=== PATIENT | male | born 1935 | race African-American/Black ===

== ENCOUNTER 2024-10-06 12:27 | Inpatient (IN) | payer MEDICARE, MEDICAID ==
[~2024-10-06] VITALS: Ht 167.6 cm; Wt 98.0 kg
[2024-10-06 12:35] VITALS: O2SAT 97
[2024-10-06 14:08] LABS: CLARITY URINE CLEAR (CLEAR); COLOR URINE YELLOW (YELLOW); GLUCOSE URINE 1+ (NEGATIVE); KETONES URINE NEGATIVE (NEGATIVE); LEUKOCYTE ESTERASE URINE NEGATIVE (NEGATIVE); NITRITE URINE NEGATIVE (NEGATIVE); OCCULT BLOOD URINE NEGATIVE (NEGATIVE); PH URINE 6.0 (4.5-8.0); PROTEIN URINE NEGATIVE (NEGATIVE); SPECIFIC GRAVITY URINE 1.007 (1.005-1.030); UROBILINOGEN URINE 0.2 E.U./dL (0.2-1.0)
[2024-10-06 14:28] LABS: BACTERIA URINE NONE SEEN; SQUAMOUS EPITHELIAL CELL URINE RARE /lpf (RARE/1+)
[2024-10-06 14:29] LABS: RBC URINE NONE SEEN /hpf (0-2); WBC URINE NONE SEEN /hpf (0-2)
[2024-10-06 15:41] LABS: BASOPHILS % 0.4 % (0.0-2.0); EOSINOPHILS % 1.0 % (0.0-5.0); HEMATOCRIT. 40.0 % (42.0-52.0); HEMOGLOBIN. 12.1 g/dL (14.0-18.0); LYMPHOCYTES % 11.8 % (20.0-50.0); MEAN PLATELET VOLUME 9.9 fl (7.4-10.4); MONOCYTES % 9.5 % (2.0-8.0); NEUTROPHILS % 77.3 % (40.0-76.0); PLATELET 198 x1000/uL (130-400); RED BLOOD CELL COUNT 4.52 mill/uL (4.7-6.1); RED CELL DISTRIBUTION WIDTH 18.8 % (11.6-14.6)
[2024-10-06 15:51] LABS: INR 1.0
[2024-10-06 15:55] LABS: CREATININE 1.1 mg/dL (0.6-1.3)
[2024-10-06 15:56] LABS: UREA NITROGEN BLOOD 11 mg/dL (9-23)
[2024-10-06 15:57] LABS: ASPARTATE AMINOTRANSFERASE 13 IU/L (<34)
[2024-10-06 15:58] LABS: BILIRUBIN DIRECT 0.3 mg/dL (<=3.0); BILIRUBIN TOTAL 0.9 mg/dL (0.1-1.0); PROTEIN TOTAL 6.7 g/dL (6.0-8.3)
[2024-10-06 16:08] LABS: TROPONIN I HIGH SENSITIVITY 57 ng/L (3.0-53)
[2024-10-06] MEDS: ASPIRIN 325MG TABLET PO ONE (16:33)
[2024-10-06] MEDS ORDERED: DIPHENHYDRAMINE 50MG/ML VIAL IV PRN (18:45)
[2024-10-06] MEDS ORDERED: CARVEDILOL 6.25 MG TABLET PO NR (18:45)
[2024-10-06] MEDS ORDERED: DOCUSATE SODIUM 100MG CAPSULE PO PRN (18:45)
[2024-10-06] MEDS ORDERED: ONDANSETRON HCL 4MG/2ML INJ IV PRN (18:45)
[2024-10-06] MEDS ORDERED: MAGNESIUM/ALUMINUM HYDROXIDE/SIMETHICONE 30ML UDC PO PRN (18:45)
[2024-10-06] MEDS ORDERED: GUAIFENESIN 200MG/10ML SUGAR FREE UDC PO PRN (18:45)
[2024-10-06] MEDS ORDERED: ACETAMINOPHEN 325MG TABLET PO PRN ×2 (18:45)
[2024-10-06 20:35] LABS: TROPONIN I HIGH SENSITIVITY 55 ng/L (3.0-53)
[2024-10-06 21:00] VITALS: BP 139/102; PULSE 111; RESP 18; TEMP 36.1; O2SAT 100
[2024-10-06] MEDS: FUROSEMIDE 40MG/4ML VIAL IV SCH (22:04)
[2024-10-06] MEDS: ATORVASTATIN CALCIUM 40MG TABLET PO SCH (22:04)
[2024-10-06] MEDS: ENOXAPARIN 30MG/0.3ML SYR SUBCUT SCH (22:05)
[2024-10-06] MEDS ORDERED: IBUP-2030 PO (23:02)
[2024-10-06] MEDS ORDERED: LATA2.5D14 EACHEYE (23:02)
[2024-10-06] MEDS ORDERED: BRIM.2 EACHEYE (23:02)
[2024-10-06] MEDS ORDERED: FINA5TAB11 PO (23:02)
[2024-10-06] MEDS ORDERED: EMPA25TA PO (23:02)
[2024-10-06] MEDS ORDERED: FOLI-43 PO (23:02)
[2024-10-06] MEDS ORDERED: RIVA20TA PO (23:02)
[2024-10-06] MEDS ORDERED: ERGO1250 PO (23:02)
[2024-10-06] MEDS ORDERED: DORZ10DR9 EACHEYE (23:02)
[2024-10-06] MEDS ORDERED: DILT300C52 PO (23:02)
[2024-10-06] MEDS ORDERED: CYAN-35 PO (23:02)
[2024-10-06] MEDS ORDERED: OXYC30TA2 PO (23:02)
[2024-10-06 23:44] LABS: *AMPHETAMINES SCREEN URINE NEGATIVE (NEGATIVE); *BARBITURATES SCREEN URINE NEGATIVE (NEGATIVE); *BENZODIAZEPINES SCREEN URINE NEGATIVE (NEGATIVE); *COCAINE SCREEN URINE NEGATIVE (NEGATIVE); METHADONE URINE SCREEN NEGATIVE (NEGATIVE); OPIATES URINE SCREEN NEGATIVE (NEGATIVE)
[2024-10-06 23:45] LABS: CANNABINOID URINE SCREEN NEGATIVE (NEGATIVE); ECSTASY MDMA SCREEN URINE NEGATIVE (NEGATIVE); PHENCYCLIDINE URINE SCREEN NEGATIVE (NEGATIVE)
[2024-10-07] VITALS (7 sets, daily range): BP systolic 129–139; BP diastolic 65–94; PULSE 64–103; RESP 18; TEMP 36.1–36.5; O2SAT 97–100
[2024-10-07 06:15] LABS: BASOPHILS % 0.4 % (0.0-2.0); EOSINOPHILS % 1.2 % (0.0-5.0); HEMATOCRIT. 38.3 % (42.0-52.0); HEMOGLOBIN. 12.0 g/dL (14.0-18.0); LYMPHOCYTES % 13.1 % (20.0-50.0); MEAN PLATELET VOLUME 10.0 fl (7.4-10.4); MONOCYTES % 11.4 % (2.0-8.0); NEUTROPHILS % 73.9 % (40.0-76.0); PLATELET 169 x1000/uL (130-400); RED BLOOD CELL COUNT 4.50 mill/uL (4.7-6.1); RED CELL DISTRIBUTION WIDTH 17.7 % (11.6-14.6)
[2024-10-07 06:29] LABS: CREATININE 1.3 mg/dL (0.6-1.3); UREA NITROGEN BLOOD 15 mg/dL (9-23)
[2024-10-07 06:33] LABS: T4 FREE 0.89 ng/dL (0.89-1.76)
[2024-10-07] MEDS: SPIRONOLACTONE 25MG TABLET PO SCH (08:52)
[2024-10-07] MEDS: EMPAGLIFLOZIN 10MG TABLET PO SCH (08:52)
[2024-10-07] MEDS: FOLIC ACID 1MG TABLET PO SCH (08:52)
[2024-10-07] MEDS: IPRATROPIUM/ALBUTEROL 0.5-3(2.5)MG/3ML NEB HHN PRN (14:38)
[2024-10-08] VITALS: BP 108/70; PULSE 59; RESP 17; TEMP 37; O2SAT 98
[2024-10-08 04:00] VITALS: BP 112/81; PULSE 65; RESP 18; TEMP 36.4; O2SAT 98
[2024-10-08 08:00] VITALS: BP 134/62; PULSE 104; RESP 20; TEMP 36.7; O2SAT 100
[2024-10-08 08:43] LABS: CREATININE 1.2 mg/dL (0.6-1.3); UREA NITROGEN BLOOD 18 mg/dL (9-23)
[2024-10-08 09:38] LABS: BASOPHILS % 0.5 % (0.0-2.0); EOSINOPHILS % 1.0 % (0.0-5.0); HEMATOCRIT. 38.6 % (42.0-52.0); HEMOGLOBIN. 12.4 g/dL (14.0-18.0); LYMPHOCYTES % 14.4 % (20.0-50.0); MEAN PLATELET VOLUME 10.2 fl (7.4-10.4); MONOCYTES % 11.4 % (2.0-8.0); NEUTROPHILS % 72.7 % (40.0-76.0); PLATELET 163 x1000/uL (130-400); RED BLOOD CELL COUNT 4.58 mill/uL (4.7-6.1); RED CELL DISTRIBUTION WIDTH 17.6 % (11.6-14.6)
[2024-10-08 12:00] VITALS: BP 128/62; PULSE 85; RESP 20; TEMP 37; O2SAT 100
[2024-10-08] MEDS: LATANOPROST 0.005% OPHTH DROPS 2.5ML BOTHEYE SCH (13:32)
[2024-10-08] MEDS: TIMOLOL MALEATE 0.25% OPHTH DROPS 5ML EACHEYE SCH (13:33)
[2024-10-08] MEDS: BRIMONIDINE 0.2% OPHTH DROPS 5ML BOTHEYE SCH (13:33)
[2024-10-08] MEDS ORDERED: SPIR25TA PO (14:12)
[2024-10-08] MEDS ORDERED: APIX2.5T MT (14:12)
[2024-10-08] MEDS ORDERED: COR6 MT (14:12)
[2024-10-08] MEDS ORDERED: EMPA25TA PO (14:12)
[2024-10-08] MEDS ORDERED: FURO-151 PO (14:12)
[2024-10-08 16:00] VITALS: BP 110/86; PULSE 128; RESP 18; TEMP 36.4; O2SAT 98
[2024-10-08] MEDS ORDERED: TIMOLOL MALEATE 0.25% OPHTH DROPS 5ML EACHEYE SCH (21:00)
== END 2024-10-08 14:49 | disposition home health service (06) | DRG 280 ==
LOC: EDBD 12:27 → ER 14:46 → EDBEDREQ 16:14 → ENRESERV 19:01 → 5WST 21:17
PROVIDERS: ADMIT Hospitalist; ATTEND Hospitalist
DX: I11.0 Hypertensive heart disease with heart failure (principal); I50.23 Acute on chronic systolic (congestive) heart failure; I21.A1 Myocardial infarction type 2; I48.91 Unspecified atrial fibrillation; I49.3 Ventricular premature depolarization; E78.5 Hyperlipidemia, unspecified; D64.9 Anemia, unspecified; Z91.199 Patient's noncompliance with other medical treatment and regimen due to unspecified reason; Z79.01 Long term (current) use of anticoagulants; Z79.84 Long term (current) use of oral hypoglycemic drugs; Z79.899 Other long term (current) drug therapy
CPT/HCPCS: 36415; 71045; 80048; 80076; 80305; 81003; 82962; 83880; 84439; 84443; 84484; 85025; 94070; 94640; 94664; 98960; 99291; J1650; J1940